=== PATIENT | female | born 1985 | race Caucasian/White ===

== ENCOUNTER 2021-09-29 04:52 | Emergency (ER) | payer SELFPAY ==
[~2021-09-29] VITALS: Ht 160 cm; Wt 121.0 kg
[2021-09-29] MEDS ORDERED: KETOROLAC 30MG/ML VIAL IM ONE (06:30)
[2021-09-29 06:45] LABS: BASOPHILS % 0.6 % (0.0-2.0); EOSINOPHILS % 1.6 % (0.0-5.0); HEMOGLOBIN. 12.4 g/dL (12.0-16.0); LYMPHOCYTES % 34.4 % (20.0-50.0); MEAN CORPUSCULAR HEMOGLOBIN 28.7 pg (28.0-32.0); MEAN CORPUSCULAR VOLUME 85.7 fL (81.0-99.0); MEAN PLATELET VOLUME 8.8 fl (7.4-10.4); NEUTROPHILS % 58.4 % (40.0-76.0); PLATELET 265 x1000/uL (130-400); RED BLOOD CELL COUNT 4.32 mill/uL (4.2-5.4); RED CELL DISTRIBUTION WIDTH 13.8 % (11.6-14.6)
[2021-09-29 06:52] LABS: CHLORIDE 108 mEq/L (98-107)
[2021-09-29 07:05] LABS: B-HCG QUANTITATIVE < 1 mIU/mL (<3)
[2021-09-29] MEDS ORDERED: IBUP-2029 MT (08:22)
[2021-09-29 08:38] VITALS: BP 137/89
== END 2021-09-29 08:39 | disposition home or self-care (01) ==
LOC: ER 04:52
DX: N93.8 Other specified abnormal uterine and vaginal bleeding (principal); R10.30 Lower abdominal pain, unspecified; R03.0 Elevated blood-pressure reading, without diagnosis of hypertension
CPT/HCPCS: 36415; 76830; 76856; 80053; 81025; 84702; 85025; 86850; 86900; 86901; 96372; 99284; J1885